=== PATIENT | female | born 1995 | race Caucasian/White ===

== ENCOUNTER → 2020-08-14 14:01 | Outpatient (CLI) | payer OTHER, SELFPAY ==
--- NOTE | 2020-08-14 | DI.RAD.S_ITS ---
PROCEDURE: XR CHEST 2V INDICATIONS: Chest Pain TECHNIQUE: 2 views of the chest were acquired. COMPARISON: None. FINDINGS: Surgical changes and devices: None. Lungs and pleura: Lungs are clear. No pleural effusions or pneumothorax. Mediastinum: Mediastinal contours are normal. Heart size is normal. Bones and chest wall: No suspicious bony abnormalities. Soft tissues appear unremarkable. IMPRESSION: No acute disease. Dictated by: Christiano Munroe M.D. on 08/14/2020 at 15:11 Approved by: Christiano Munroe M.D. on 08/14/2020 at 15:12
== END ==
PROVIDERS: PCP Family Medicine; Referring Provider Family Medicine; Visit Provider Family Medicine
DX: R07.9 Chest pain, unspecified (principal)
CPT/HCPCS: 71046

== ENCOUNTER → 2021-07-16 10:39 | Outpatient (CLI) | payer OTHER, SELFPAY ==
--- NOTE | 2021-07-16 10:42 | DI.US.S_ITS ---
PROCEDURE: US PELVIC COMPLETE INDICATIONS: RIGHT PELVIC PAIN TECHNIQUE: Real-time scanning was performed of the pelvic organs, with image documentation. Additional endovaginal scanning was necessary due to incomplete visualization of the adnexal and endometrial structures by transabdominal scanning. COMPARISON: None. FINDINGS: Uterus: Uterus is normal in size at 6.7 x 5.0 x 3.5 cm. The endometrium measures 4.4 mm in combined thickness. Ovaries: Right ovary measures 4.3 x 4.0 x 2.4 cm. Simple cyst is noted measuring 3.1 x 3.2 1.8 cm. Left ovary is not visualized. Other: No pathologic free abdominal or pelvic fluid. IMPRESSION: Right ovarian cyst. Dictated by: Deysi Atkins M.D. on 07/16/2021 at 16:50 Approved by: Deysi Atkins M.D. on 07/16/2021 at 16:52
== END ==
PROVIDERS: PCP Family Medicine; Referring Provider Internal Medicine; Visit Provider Internal Medicine
DX: R10.2 Pelvic and perineal pain (principal); N92.0 Excessive and frequent menstruation with regular cycle; N83.291 Other ovarian cyst, right side
CPT/HCPCS: 76830; 76856